=== PATIENT | male | born 1995 | race Caucasian/White ===

== ENCOUNTER 2017-10-31 00:20 | Emergency (ER) | payer MEDICAID ==
[~2017-10-31] VITALS: Ht 180.3 cm; Wt 84.1 kg
[2017-10-31 01:25] LABS: APPEARANCE,URINE CLEAR (CLEAR); BILIRUBIN,URINE NEGATIVE (NEGATIVE); GLUCOSE, URINE (UA) NEGATIVE (NEGATIVE); KETONES,URINE NEGATIVE (NEGATIVE); LEUKOCYTE ESTERASE ,URINE NEGATIVE (NEGATIVE); NITRATE,URINE NEGATIVE (NEGATIVE); OCCULT BLOOD,URINE NEGATIVE (NEGATIVE); PROTEIN,URINE NEGATIVE (NEGATIVE); UROBILINOGEN,URINE 0.2 mg/dL (<=1.0)
[2017-10-31] MEDS ORDERED: LIDOCAINE HCL/PF 1% 2 ML VIAL IM ONE (02:15)
[2017-10-31] MEDS ORDERED: AZITHROMYCIN 250 MG TABLET PO ONE (02:15)
[2017-10-31] MEDS ORDERED: CefTRIAXone SODIUM 1 GM/VIAL IM ONE (02:15)
[2017-10-31 03:03] VITALS: BP 134/85
== END 2017-10-31 03:06 | disposition home or self-care (01) ==
LOC: EMS 00:22
DX: N50.3 Cyst of epididymis (principal)
CPT/HCPCS: 81003; 87491; 87591; 96372; 99284; J0696; J3490

== ENCOUNTER 2018-04-29 21:45 | Emergency (ER) | payer MEDICAID ==
[~2018-04-29] VITALS: Ht 180.3 cm; Wt 89.5 kg
[2018-04-29 23:14] VITALS: BP 171/91
== END 2018-04-29 23:43 | disposition home or self-care (01) ==
LOC: EMS 21:45
DX: N50.3 Cyst of epididymis (principal); K52.9 Noninfective gastroenteritis and colitis, unspecified
CPT/HCPCS: 99283

== ENCOUNTER 2021-06-02 22:14 | Emergency (ER) | payer SELFPAY ==
[~2021-06-02] VITALS: Ht 177.8 cm; Wt 106.8 kg
[2021-06-03 03:03] LABS: APPEARANCE,URINE CLEAR (CLEAR); BILIRUBIN,URINE NEGATIVE (NEGATIVE); GLUCOSE, URINE (UA) NEGATIVE (NEGATIVE); KETONES,URINE TRACE mg/dL (NEGATIVE); LEUKOCYTE ESTERASE ,URINE NEGATIVE (NEGATIVE); NITRATE,URINE NEGATIVE (NEGATIVE); OCCULT BLOOD,URINE NEGATIVE (NEGATIVE); PH,URINE 6.5 (5.0-8.0); PROTEIN,URINE NEGATIVE (NEGATIVE)
[2021-06-03 03:05] LABS: RBC,URINE None Seen /HPF (0-2); WBC,URINE None Seen /HPF (0-5)
[2021-06-03 03:06] LABS: BACTERIA,URINE None Seen /HPF (None Seen)
[2021-06-03 04:00] VITALS: BP 134/79
== END 2021-06-03 04:31 | disposition home or self-care (01) ==
LOC: EMS 22:18
DX: I86.1 Scrotal varices (principal); L72.0 Epidermal cyst
CPT/HCPCS: 76870; 81001; 99285; Z7502